=== PATIENT | male | born 1955 | race Two or more races ===

== ENCOUNTER 2018-05-08 18:01 | Emergency (ER) | payer OTHER ==
--- NOTE | 2018-05-08 18:52 | ED Physician Chart ---
ED Chief Complaint/HPI - Patient Information Date Seen:: 05/08/18 Time Seen:: 18:30 Chief Complaint:: Hematuria History of Present Illness:: onset x 3 days of intermittent hematuria and dysuria; pt denies trauma, LOC, ALOC, AMS, H/As, S/T, neck pain, cough, C/P, SOB, Abd. pain, A/N/V/D/C, fever, chills, penile/urethral discharge, flank pain, visual or gait changes, back pain , weakness, dizziness, paresthesias, vertigo, bleeding, or hip pain; pt is eating and urinating well; pt last urinated one hour [employer] Allergies:: Allergies Allergy/AdvReac Type Severity Reaction Status Date / Time Penicillins [PCN] Allergy Verified 05/08/18 18:47 Historian:: Patient Review:: Nurse's Note Reviewed, Old Chart Reviewed ED Review of Systems - Review of Systems General/Constitutional: No fever, No chills, No weight loss, No weakness, No diaphoresis, No edema, No loss of appetite Skin: No skin lesions, No rash, No bruising Head: No headache, No light-headedness Eyes: No loss of vision, No pain, No diplopia ENT: No earache, No nasal drainage, No sore throat, No tinnitus Neck: No neck pain, No swelling, No thyromegaly, No stiffness, No mass noted Cardio Vascular: No chest pain, No palpitations, No PND, No orthopnea, No edema Pulmonary: No SOB, No cough, No sputum, No wheezing GI: No nausea, No vomiting, No diarrhea, No pain, No melena, No hematochezia, No constipation, No hematemesis G/U: Dysuria, No frequency, Hematuria, No nacturia Musculoskeletal: No bone or joint pain, No back pain, No muscle pain Endocrine: No polyuria, No polydipsia Psychiatric: No prior psych history, No depression, No anxiety, No suicidal ideation, No homicidal ideation, No auditory hallucination, No visual hallucination Hematopoietic: No bruising, No lymphadenopathy Allergic/Immuno: No urticaria, No angioedema Neurological: No syncope, No focal symptoms, No weakness, No paresthesia, No headache, No seizure, No dizziness, No confusion, No vertigo ED Past Medical History - Past Medical History Obtainable: Yes Past Medical History: HTN Family History: HTN Social History: Non Smoker, No Alcohol, No Drug Use, Surgical History: None Psychiatricy History: None Medication: Reviewed Family Medical History - Family Member Mother History Unknown: Yes ED Physical Exam - Physical Examination General/Constitutional: Awake, Well-developed, well-nourished, Alert, No distress, GCS 15, Non-toxic appearing, Ambulatory Head: Atraumatic Eyes: Lids, conjuctiva normal, PERRL, EOMI Skin: Nl inspection, No rash, No skin lesions, No ecchymosis, Well hydrated, No lymphadenopathy ENMT: External ears, nose nl, TM canals nl, Nasal exam nl, Lips, teeth, gums nl , Oropharynx nl, Tonsils nl Neck: Nontender, Full ROM w/o pain, No JVD, No nuchal rigidity, No bruit, No mass, No stridor Other Neck comments:: supple; no meningeal signs; no cervical tenderness Respiratory: Nl effort/Exclusion, Clear to Auscultation, No Wheeze/Rhonchi/Rales Cardio Vascular: RRR, No murmur, gallop, rubs, NL S1 S2, Carotid/Femoral/Distal pulses equal bilaterally GI: No tenderness/rebounding/guarding, No organomegaly, No hernia, Normal BS's, Nondistended, No mass/bruits, No McBurney tenderness, Rectum exam nl Other GI comments:: no pulsatile masses : No CVA tenderness, NL external genitalia, No discharge Other comments:: no active bleeding Extremities: No tenderness or effusion, Full ROM, normal strength in all extremities, No edema, Normal digits & nails Neuro/Psych: Alert/oriented, DTR's symmetric, Normal sensory exam, Normal motor strength, Judgement/insight normal, Mood normal, Normal gait, No focal deficits Other Neuro/Psych comments:: no focal signs Misc: Normal back, No paraspinal tenderness ED Labs/Radiology/EKG Results - Lab Results Comments:: Reviewed - Radiology Results Comments:: X-Rays: deferred by pt ED Septic Shock - . Is Septic Shock (SBP<90, OR Lactate>4 mmol\L) present?: No ED Reassessment (Disposition) - Reassessment Reassessment:: pt tolerated po fluids well in ER; pt is asymptomatic upon discharge Reassessment Condition:: Improved - Diagnosis Diagnosis:: Hematuria; Dysuria; UTI; Nephrolithiasis; Hemorrhagic Cystitis - Aftercare/Follow up Instructions Aftercare/Follow-Up Instructions:: Counseled pt regarding lab results/diagnosis & need follow up, Refer to Discharge Instructions, Counseled pt & family regarding lab results/diagnosis & need follow up Medication Prescribed:: Rx: Doxycycline 100mg po bid x 10 days; Urine Strainer: Strain all Urine; encourage fluids especially citric acid juices - Patient Disposition Discharge/Transfer:: Home Condition at Disposition:: Stable, Improved (RTER prn if existing s/s reoccur and/or get worse and/or any other new s/s occur; ACIs given for all above Dx; Refer to Urologist/Permit Review Assistant PATRICIA; F/U with PMD in one day or prn; RTER prn if concerned)
[2018-05-08 18:57] LABS: URINE SOURCE MIDSTREAM
[2018-05-08 19:00] LABS: URINE BILIRUBIN NEGATIVE (NEGATIVE); URINE BLOOD LARGE (NEGATIVE); URINE GLUCOSE (UA) NEGATIVE (NEGATIVE); URINE KETONE NEGATIVE (NEGATIVE); URINE LEUKOCYTE ESTERASE NEGATIVE (NEGATIVE); URINE MICROSCOPIC INDICATED? YES; URINE NITRATE NEGATIVE (NEGATIVE); URINE PROTEIN NEGATIVE (NEGATIVE); URINE UROBILINOGEN 0.2 E.U./dL (0.2 - 1.0)
[2018-05-08 19:38] LABS: URINE CLARITY CLEAR (CLEAR); URINE COLOR COLORLESS
[2018-05-08 19:54] LABS: URINE RBC NONE SEEN /hpf (0-5)
[2018-05-08 19:55] LABS: URINE BACTERIA NONE SEEN /hpf (NONE SEEN); URINE EPITHELIAL CELLS NONE SEEN /lpf (FEW); URINE WBC NONE SEEN /hpf (0-5)
== END 2018-05-08 19:50 | disposition home or self-care (01) ==
LOC: ER 18:01
DX: N39.0 Urinary tract infection, site not specified (principal); N20.0 Calculus of kidney; I10 Essential (primary) hypertension; Z88.0 Allergy status to penicillin
CPT/HCPCS: 81001-TC; Z7502

== ENCOUNTER 2018-05-23 14:49 | Outpatient (CLI) | payer OTHER ==
--- NOTE | 2018-05-24 08:05 | Diagnostic Imaging Report ---
Exam: Renal ultrasound HISTORY: Hematuria Findings: Real-time ultrasound examination of the kidneys performed multiple planes. The study demonstrates no evidence of obstructive uropathy or nephrolithiasis. Right kidney measures 12.7 x 2.5 x 7.3 cm diameter contains a large 6.8 x 7.5 x 7 cm cyst. Left kidney measures 10.9 x 6.8 x 5.5 cm contains 1.4 x 1.5 cm cyst. Urinary bladder is intact. IMPRESSION: no evidence of obstructive uropathy, bilateral renal cysts.
== END 2018-05-23 15:20 | disposition home or self-care (01) ==
LOC: RAD 14:49
PROVIDERS: ATTEND Internal Medicine
DX: N28.1 Cyst of kidney, acquired (principal)
CPT/HCPCS: 76770-TC